=== PATIENT | male | born 1995 | race Caucasian/White ===

== ENCOUNTER 2022-03-17 13:58 | Emergency (ER) | payer BC, SELFPAY ==
[2022-03-17 13:59] VITALS: BP 161/96; PULSE 125; RESP 14; TEMP 36.3; O2SAT 99; BMI 30.7
--- NOTE | 2022-03-17 14:19 | EKG12_ITS ---
Test Reason : HTN Blood Pressure : / mmHG Vent. Rate : 114 BPM Atrial Rate : 114 BPM P-R Int : 178 ms QRS Dur : 088 ms QT Int : 316 ms P-R-T Axes : 060 065 062 degrees QTc Int : 435 ms Sinus tachycardia Otherwise normal ECG Confirmed by EFREN WEATHERS, ROBERT ([id number]), acquisition editor KRUNAL VASQUEZ ([id number]) on 03/20/2022 9:54:42 A M Referred By: Confirmed By:LEANNE SCHWARTZ MD
--- NOTE | 2022-03-17 14:22 | EDS_ITS ---
HPI <VAL Seaman - Last Filed: 03/17/22 16:01> History of Present Illness Chief Complaint: Hypertension Narrative Narrative: 26-year-old male presents with multiple complaints. Over the last 2 weeks he has felt intermittent palpitations, shortness of breath at rest, numbness and tingling all over, and difficulty concentrating like my brain is on a dimmer switch. Today while sitting he felt extreme fatigue and weakness which prompted him to come in. He was able to stand and walk to the car. He checked his blood sugar with his family's glucometer and it was 111. He had no associated chest pain or shortness of breath. In fact he states he is able to run and exercise with no symptoms. He reports having similar intermittent symptoms for over a year. He had a full cardiology work-up at [place] with EKG and echo which was normal. He trialed metoprolol for tachycardia for a week but states he did not like taking medication. He also had treated anxiety but the medications made it worse. He is also had neurological work-up with an MRI of the brain and EEG he reports were normal. He denies taking any medications for 6+ months now. He does not smoke or drink alcohol or use drugs. PFSH <VAL Seaman - Last Filed: 03/17/22 16:01> [facility] Medical History no medical history Allergy/AdvReac Type Severity Reaction Status Date / Time No Known Allergies Allergy Verified 03/17/22 13:59 Surgical History no surgical history Social History Smoking Status: Never smoker ROS <VAL Seaman - Last Filed: 03/17/22 16:01> ROS ED ROS Narrative Constitutional: Negative for fever, chills, malaise. Eyes: Negative for visual change. ENT: Negative for sore throat, ear pain, rhinorrhea. CVS: Positive for palpitations. Negative for chest pain, syncope. Respiratory: Positive for shortness of breath. Negative for cough, orthopnea. GI: Negative for abdominal pain, nausea, vomiting, diarrhea, constipation, melena, hematochezia. : Negative for dysuria, hematuria or frequency. Neuro: Negative for headache, motor/sensory dysfunction. Skin: Negative for rash, abscess, or wound. Musc: Negative for joint pain, swelling, trauma. Heme: Negative for easy bruising, bleeding, lymphadenopathy. EXAM <VAL Seaman - Last Filed: 03/17/22 16:01> Physical Exam Narrative Exam Narrative: CONST: Patient standing, mildly anxious appearing. EYES: Normal inspection. ENT: Normal inspection, moist mucous membranes. NECK: Normal inspection. RESP: No respiratory distress, CTAB. CVS: Tachycardic with regular rhythm, no murmur, no gallop. SKIN: Color normal, no rash, warm, dry, intact. EXTREMITIES: Normal appearance, no pedal edema. NEURO: Oriented x4. PSYCH: Normal affect. Const Vital Signs: 03/17/22 13:59 03/17/22 14:15 03/17/22 16:11 Temperature 97.4 F L Temperature Source Temporal Pulse Rate 125 H 61 Respiratory Rate 14 15 Respiratory Effort Normal Respiratory Pattern Normal Blood Pressure 161/96 H 134/78 H Blood Pressure Mean 117 Pulse Ox 99 98 Oxygen Delivery Method Room Air <Dr. Kenneth Olsen DO - Last Filed: 03/17/22 22:37> Physical Exam Const Vital Signs: 03/17/22 13:59 03/17/22 14:15 03/17/22 16:11 Temperature 97.4 F L Temperature Source Temporal Pulse Rate 125 H 61 Respiratory Rate 14 15 Respiratory Effort Normal Respiratory Pattern Normal Blood Pressure 161/96 H 134/78 H Blood Pressure Mean 117 Pulse Ox 99 98 Oxygen Delivery Method Room Air [facility] <VAL Seaman - Last Filed: 03/17/22 16:01> [facility] Narrative Medical decision making narrative: Patient presents with constellation of symptoms including generalized weakness, palpitations, intermittent shortness of breath at rest, and tingling. He appears well and nontoxic. Vital signs show BP of 161/96 and heart rate of 125 otherwise normal. On examination he is anxious. His heart is rapid but regular. Lungs are clear. Overall exam benign. EKG is sinus rhythm with normal intervals and no ischemic changes. Basic labs and TSH only remarkable for mild hypokalemia of 3.3. Troponin and D-dimer negative and CXR shows no acute process. Patient reports having extensive work-up for these symptoms in the last year including cardiology work-up with EKG/echo and neurology work-up with MRI brain/EEG which were all unrevealing. Cardiology had prescribed metoprolol XR 25 mg once daily and patient only took this for a week. He has known intermittent tachycardia and is mildly tachycardic here. He was agreeable to restart this so I provided a prescription. 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 He was discharged in stable condition. Lab Data Attestation: I reviewed the patient's lab results. Labs: Laboratory Results - last 24 hr 03/17/22 03/17/22 03/17/22 14:30 14:30 14:30 WBC 5.2 RBC 4.95 Hgb 15.8 Hct 45.6 MCV 92.1 MCH 31.9 MCHC 34.6 RDW Std Deviation 43.2 RDW Coeff of Ean 12.7 Plt Count 208 MPV 11.5 Immature Gran % (Auto) 0.400 Neut % (Auto) 56.1 Lymph % (Auto) 31.3 Archer % (Auto) 9.1 Eos % (Auto) 2.5 Baso % (Auto) 0.6 Absolute Neuts (auto) 2.9 Absolute Lymphs (auto) 1.62 Nucleated RBC % 0 D-Dimer Quant (PE/DVT) 0.29 Sodium 142 Potassium 3.3 L Chloride 109 H Carbon Dioxide 24.0 Anion Gap 9 BUN 12 Creatinine 1.22 Estim Creat Clear Calc 97.73 Est GFR (MDRD) Af Amer 92 Est GFR (MDRD) Non-Af 76 BUN/Creatinine Ratio 9.8 L Glucose 149 H Calcium 9.3 Troponin I High Sens 3 TSH 03/17/22 14:30 WBC RBC Hgb Hct MCV MCH MCHC RDW Std Deviation RDW Coeff of Ean Plt Count MPV Immature Gran % (Auto) Neut % (Auto) Lymph % (Auto) Archer % (Auto) Eos % (Auto) Baso % (Auto) Absolute Neuts (auto) Absolute Lymphs (auto) Nucleated RBC % D-Dimer Quant (PE/DVT) Sodium Potassium Chloride Carbon Dioxide Anion Gap BUN Creatinine Estim Creat Clear Calc Est GFR (MDRD) Af Amer Est GFR (MDRD) Non-Af BUN/Creatinine Ratio Glucose Calcium Troponin I High Sens TSH 1.75 Radiography Diagnostic Testing: Clinical Impression(s) from Imaging Studies Chest X-Ray 03/17/22 14:40 IMPRESSION: Scattered calcified granulomas. The lungs are clear. Electronically Signed: Gigi Toussaint MD at 14:49 EDT , ED attending interpretation shows normal heart size, no acute infiltrate, edema, or effusion. EKG Initial EKG: Attestation: I personally reviewed and interpreted this EKG as follows: Interpretation: Sinus Rhythm and No Acute Injury Pattern Comments: Sinus tachycardia at 114 bpm, normal intervals, no acute ischemia <Dr. Kenneth Olsen, DO - Last Filed: 03/17/22 22:37> [facility] MDM Narrative Medical decision making narrative: Patient presents with constellation of symptoms including generalized weakness, palpitations, intermittent shortness of breath at rest, and tingling. He appears well and nontoxic. Vital signs show BP of 161/96 and heart rate of 125 otherwise normal. On examination he is anxious. His heart is rapid but regular. Lungs are clear. Overall exam benign. EKG is sinus rhythm with normal intervals and no ischemic changes. Basic labs and TSH only remarkable for mild hypokalemia of 3.3. Troponin and D-dimer negative and CXR shows no acute process. Patient reports having extensive work-up for these symptoms in the last year including cardiology work-up with EKG/echo and neurology work-up with MRI brain/EEG which were all unrevealing. Cardiology had prescribed metoprolol XR 25 mg once daily and patient only took this for a week. He has known intermittent tachycardia and is mildly tachycardic here. He was agreeable to restart this so I provided a prescription. 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 He was discharged in stable condition. Attending note: Patient seen and evaluated with bridge instructor. I perform my own [id number] evaluation. I agree with the plan of work-up. Recurrent palpitations lightheadedness and tingling paresthesias hands and feet. Symptoms started 6 months ago he has follow-up with cardiology in [place] along with neurology. Reports echocardiogram 16-day event monitor only noting sinus tachycardia. He had MRI of the brain EEG with neurology that were negative he had recommended potential seizure medicines to try to help with symptoms however declined. He was put on metoprolol 25 mg daily however took it for 1 to 2 weeks however stopped. Denies alcohol caffeine substances or recreational drug use. He did have recent return to [place]. Exam patient walking around the room anx ious. Heart was tachycardic. No focal deficits. EKG sinus tachycardia. Chest x-ray 1 view reviewed by myself read by radiology shows no acute process. Labs stable with potassium 3.3 this was orally replaced. Low risk Wells criteria for PE with tachycardia D-dimer obtained negative. TSH added with normal. Offered 40-hour Holter monitor initially agreed however then declined stating he will follow-up with his glassine machine tender. Discussed with patient to rediscussed with his neurology team for potential treatment for his neurological symptoms. He did agree to go back to metoprolol 25 mg daily for which a prescription was written. All questions were answered. Lab Data Labs: Laboratory Results - last 24 hr 03/17/22 03/17/22 03/17/22 14:30 14:30 14:30 WBC 5.2 RBC 4.95 Hgb 15.8 Hct 45.6 MCV 92.1 MCH 31.9 MCHC 34.6 RDW Std Deviation 43.2 RDW Coeff of Ean 12.7 Plt Count 208 MPV 11.5 Immature Gran % (Auto) 0.400 Neut % (Auto) 56.1 Lymph % (Auto) 31.3 Archer % (Auto) 9.1 Eos % (Auto) 2.5 Baso % (Auto) 0.6 Absolute Neuts (auto) 2.9 Absolute Lymphs (auto) 1.62 Nucleated RBC % 0 D-Dimer Quant (PE/DVT) 0.29 Sodium 142 Potassium 3.3 L Chloride 109 H Carbon Dioxide 24.0 Anion Gap 9 BUN 12 Creatinine 1.22 Estim Creat Clear Calc 97.73 Est GFR (MDRD) Af Amer 92 Est GFR (MDRD) Non-Af 76 BUN/Creatinine Ratio 9.8 L Glucose 149 H Calcium 9.3 Troponin I High Sens 3 TSH 03/17/22 14:30 WBC RBC Hgb Hct MCV MCH MCHC RDW Std Deviation RDW Coeff of Ean Plt Count MPV Immature Gran % (Auto) Neut % (Auto) Lymph % (Auto) Archer % (Auto) Eos % (Auto) Baso % (Auto) Absolute Neuts (auto) Absolute Lymphs (auto) Nucleated RBC % D-Dimer Quant (PE/DVT) Sodium Potassium Chloride Carbon Dioxide Anion Gap BUN Creatinine Estim Creat Clear Calc Est GFR (MDRD) Af Amer Est GFR (MDRD) Non-Af BUN/Creatinine Ratio Glucose Calcium Troponin I High Sens TSH 1.75 Radiography Diagnostic Testing: Clinical Impression(s) from Imaging Studies Chest X-Ray 03/17/22 14:40 IMPRESSION: Scattered calcified granulomas. The lungs are clear. Electronically Signed: Gigi Toussaint MD at 14:49 EDT , Discharge Plan Triage Chief Complaint: Hypertension ED Midlevel Provider: Trudy Duval ED Provider: Kenneth Olsen Dx/Rx/DC Orders Clinical Impression: Heart palpitations, Mild shortness of breath, Acute hypokalemia Instructions: ED Dyspnea, ED Palpitations Primary Care Provider: DARIO HURST Referrals: Care Physician,No Primary [Non-Staff] - Activity Restrictions/Additional Instructions: Today all of your testing looked good. You had very mildly low potassium and were given a one-time dose for replacement. Continue to drink plenty of fluids and eat a balanced diet. Today all the testing regarding her heart looked normal. No signs of heart attack or blood clots. We will restart you on metoprolol as your heart rate is elevated in the streets tachycardia. Please follow-up with your doctors at [place]. Disposition Disposition: Home, Self Care Discharge Date/Time: 03/17/22 16:13
--- NOTE | 2022-03-17 14:24 | NURSING ---
NO OLD EKGS
[2022-03-17 14:34] LABS: Absolute Lymphocyte Count 1.62 X10^3/uL (0.83-4.51); Absolute Neutrophil Count 2.9 X10^3/uL (2.0-7.7); Basophil# 0.03 X10^3/uL; Basophil% 0.6 % (0-1); Eosinophil# 0.13 X10^3/uL; Eosinophils% 2.5 % (0-5); Hematocrit 45.6 % (40-54); Hemoglobin 15.8 g/dL (13.0-16.5); Lymphocyte # 1.62 X10^3/ul (0.83-4.51); Lymphocyte % 31.3 % (19-41); Mean Corp Hgb Conc 34.6 g/dL (32-36); Mean Corpuscular Hgb 31.9 pg (27.0-32.0); Mean Corpuscular Volume 92.1 fL (80-94); Mean Platelet Vol. 11.5 fl (6.2-12.0); Monocyte# 0.47 X10^3/uL; Monocyte% 9.1 % (0-10); NRBC Flagged by Analyzer 0 % (0-5); Neutrophil # 2.91 X10^3/uL (2.7-7.7); Neutrophil % 56.1 % (47-70); Platelet Count 208 K/mm3 (150-450); RBC Distribution Width CV 12.7 % (11.6-14.6); RBC Distribution Width SD 43.2 fl (35.1-43.9); Red Blood Count 4.95 M/mm3 (4.6-6.2); White Blood Count 5.2 K/mm3 (4.4-11.0)
--- NOTE | 2022-03-17 14:40 | RAD_ITS ---
STUDY: X-RAY CHEST REASON FOR EXAM: Male, 26 years old. Dyspnea TECHNIQUE: Single AP portable view of the chest. COMPARISON: None. FINDINGS: The lungs are clear and expanded. Scattered calcified granulomas. There is no demonstrated pleural abnormality. Normal size heart. Normal mediastinum and kristel. Normal visualized pulmonary arteries. Normal visualized aortic arch and descending thoracic aorta. Normal visualized thoracic spine. Normal visualized ribs, clavicles, and shoulders. There is no demonstrated abnormality of the visualized soft tissue structures of the upper abdomen. RAD/Chest 1 View (Portable) IMPRESSION: Scattered calcified granulomas. The lungs are clear. Electronically Signed: Gigi Toussaint MD at 14:49 EDT ,
[2022-03-17 14:47] LABS: D-Dimer Quantitative (DVT/PE) 0.29 FEU/ug/m (0.27-0.49)
[2022-03-17 14:54] LABS: Anion Gap 9 (5-15); BUN 12 mg/dL (7-18); BUN/Creat Ratio 9.8 RATIO (10-20); Calcium,Total 9.3 mg/dL (8.5-10.1); Chloride 109 mmol/L (98-107); Creatinine, Serum 1.22 mg/dL (0.70-1.30); EST Glomerular Filtration Rate 76 mL/min (>60); Est Glom Filt Rate - Afr Amer 92 mL/min (>60); Estimated Creatinine Clearance 97.73 ml/min; Glucose 149 mg/dL (74-106); Potassium 3.3 mmol/L (3.5-5.1); Sodium Level 142 mmol/L (136-145); Troponin-I HS 3 pg/mL (3.0-78.0)
[2022-03-17] MEDS: Potassium Chloride Oral Tablet 20 MEQ PO (15:37)
[2022-03-17] MEDS: Metoprolol(XL)Succ 25 MG Tablet PO (15:38)
[2022-03-17 15:45] LABS: Thyroid Stim Hormone (TSH) 1.75 uIU/mL (0.358-3.74)
[2022-03-17 16:11] VITALS: BP 134/78; PULSE 61; RESP 15; O2SAT 98
== END 2022-03-17 16:13 | disposition home or self-care (01) ==
PROVIDERS: Physician Assistant; Emergency Provider Emergency Medicine; Visit Provider Emergency Medicine
DX: R00.2 Palpitations (principal); E87.6 Hypokalemia; I10 Essential (primary) hypertension; F41.9 Anxiety disorder, unspecified; R06.02 Shortness of breath
CPT/HCPCS: 71045; 80048; 84443; 84484; 85025; 85379; 93005; 96360; 99285; A4216

== ENCOUNTER 2023-04-20 11:12 | Emergency (ER) | payer OTHER, SELFPAY ==
[2023-04-20 11:12] VITALS: BP 149/99; PULSE 106; RESP 16; TEMP 36.3; O2SAT 98; BMI 32.1
--- NOTE | 2023-04-20 11:57 | EDS_ITS ---
HPI History of Present Illness Chief Complaint: Hypertension Informant: patient Narrative Narrative: Patient is a 27-year-old male with history of hypertension presenting for concern of episodes of elevated blood pressure as well as odd sensation in his chest. He states that typically his blood pressure is 140-150/90-100. He notes over the past few days he has had increased episodes where he will start to feel funny and his blood pressure will shoot up to around 175 systolic. He states he feels like there is pressure on his eyes, have a headache, be dizzy/lightheaded and his chest feels like sludge. He notes he spoke to a family friend today who recommend he come to the ER but also gave him 1 mg of Ativan which did seem to help his symptoms. Patient notes that he has cut back on his alcohol and is now only drinking 1-2 times a week has not had any binge drinking for weeks. Does not think his alcohol withdrawal but notes his blood pressure seems to be worse when he goes extended amounts of time without drinking alcohol. He is not sure if this is related or some type of alcohol withdraw. He has been prescribed BuSpar as well as metoprolol in the past but does not take it because he does not really like to take medicines. His PCP is Dr. Dario Hurst. Has not had blood work for over a year. States he does have a history of anxiety and panic attacks but has not had a lot of stress lately with the change in jobs. He then goes on to tell me that his is due with their first child and getting induced this coming Sunday. Patient notes he is feeling better than where he was earlier today was quite concerned about what ever could be causing on his elevated blood pressures. PFSH PFSH Medical History no medical history Home Medications hydroxyzine HCl 25 mg tablet 25 mg PO TID PRN anxiety #20 tabs 04/20/23 [Rx Last Taken Unknown] Allergy/AdvReac Type Severity Reaction Status Date / Time No Known Allergies Allergy Verified 04/20/23 11:12 Social History Smoking Status: Never smoker ROS ROS ED Constitutional Constitutional ED: Reports other Details: lightheaded/dizzy ; Denies chills or fever(s) Eyes Eyes: Denies blurry vision or change in vision ENT ENT ED: Denies sore throat Cardiovascular Cardiovascular: Reports chest pain; Denies palpitations or racing heartbeat Respiratory/Chest Respiratory/Chest: Denies cough or dyspnea Gastrointestinal Gastrointestinal: Denies abdominal pain, nausea or vomiting Musculoskeletal Musculoskeletal: Denies arthralgias or myalgias Integumentary Denies rash Neurologic Neurologic: Reports headache(s); Denies paresthesias or weakness Psychiatric Psychiatric: Reports anxiety; Denies depression, suicidal ideation or suicidal thoughts EXAM Physical Exam Const Vital Signs: 04/20/23 11:12 04/20/23 12:35 04/20/23 15:12 Temperature 97.4 F L Temperature Source Temporal Pulse Rate 106 H 79 Respiratory Rate 16 16 Respiratory Pattern Normal Blood Pressure 149/99 H 127/78 H Blood Pressure Mean 115 94 Pulse Ox 98 96 Oxygen Delivery Method Room Air Room Air 04/20/23 15:12 Temperature Temperature Source Pulse Rate 79 Respiratory Rate 16 Respiratory Pattern Blood Pressure 127/78 H Blood Pressure Mean 94 Pulse Ox 96 Oxygen Delivery Method Positive well nourished and well developed General Appearance ED: well developed and NAD HEENT Reports moist mucous membranes Eyes PERRL and EOMs intact bilaterally Neck supple and no JVD Chest Wall inspection of chest normal and palpation of chest normal Resp normal respiratory effort and clear to auscultation bilaterally Cardio regular rate, regular rhythm and no murmurs Cardio Narrative: 2+ radial and PT pulses GI normal to inspection, nondistended, normoactive bowel sounds and non-tender Extremity normal to inspection General Extremety ED: Negative for edema or tenderness General Extremity: Negative for edema Neuro oriented x3 Sensorium / Orientation: alert Motor Exam: Negative for general weakness Psych mental status grossly normal Mood & Affect: Negative for depressed or anxious Skin no rashes or lesions noted and no wounds MDM MDM MDM Narrative Medical decision making narrative: Patient evaluated for concern of elevated blood pressure. Patient had elevated blood pressures as high as 170 at home. He states normally he is between 1 4150. He has episodes of chest discomfort which she describes as feeling like there is sludge in his chest and feel like he might pass out. It does seem improved with Ativan which he took today. He does have a history of anxiety has previously been on BuSpar and has metoprolol but not been taking it. He appears nontoxic in the ER. EKG is nonischemic with no LVH or other acute abnormalities. CBC and BMP normal with no signs of endorgan damage associated with hypertension. Troponin is normal at 6 and his TSH is normal at 1.88. Differential includes anxiety reaction, uncontrolled/undiagnosed hypertension, hypertensive emergency and thyroid storm however given his work-up in the ER have a low suspicion for any of the severe diagnosis. On repeat his blood pressure is now 127/78 with no intervention. Given that he normalized and the only thing he took was Ativan prior to arrival I suspect this is more of an anxiety reaction. I did discuss the case with his PCP, Dr. Noble, he will instruct the patient to resume taking daily 25 metoprolol succinate daily and will prescribe hydroxyzine as needed. Patient agreeable with plan of care. Is given return precautions. Discharged home in stable condition. Lab Data Labs: Laboratory Results - last 24 hr 04/20/23 12:30 WBC 5.3 RBC 5.06 Hgb 15.9 Hct 46.9 MCV 92.7 MCH 31.4 MCHC 33.9 RDW Std Deviation 42.0 RDW Coeff of Ean 12.2 Plt Count 223 MPV 11.1 Immature Gran % (Auto) 0.600 Neut % (Auto) 64.9 Lymph % (Auto) 21.7 [place] % (Auto) 9.8 Eos % (Auto) 2.1 Baso % (Auto) 0.9 Absolute Neuts (auto) 3.4 Absolute Lymphs (auto) 1.15 Nucleated RBC % 0 Sodium 139 Potassium 4.0 Chloride 106 Carbon Dioxide 28.0 Anion Gap 5 BUN 13 Creatinine 1.02 Estim Creat Clear Calc 115.86 Est GFR (MDRD) Af Amer 112 Est GFR (MDRD) Non-Af 93 BUN/Creatinine Ratio 12.7 Glucose 100 Calcium 9.3 Troponin I High Sens 6 TSH 1.88 Radiography Diagnostic Testing: Clinical Impression(s) from Imaging Studies Chest X-Ray 04/20/23 12:20 IMPRESSION: Normal x-ray examination of the chest. Electronically Signed: Gigi Toussaint MD at 12:33 EST , Rhythm Strip Rhythm Strip: Sinus Rhythm Rate: 70 Ectopy: None EKG Initial EKG: Attestation: I personally reviewed and interpreted this EKG as follows: Interpretation: Sinus Rhythm Comments: Normal sinus rhythm rate of 77 bpm Normal axis Normal intervals Normal ST segments Prior EKG tracings: available for review Prior: Changed (No longer tachycardic) Management Discussion w/another healthcare provider: PCP Discharge Plan Triage Chief Complaint: Hypertension ED Provider: Olga Johnson Dx/Rx/DC Orders Clinical Impression: Temporary high blood pressure, Chest discomfort Instructions: ED Chest Pain, Noncardiac, ED Hypertension, To Be Confirmed Prescriptions: New hydroxyzine HCl 25 mg tablet 25 mg PO TID PRN (Reason: anxiety ) Qty: 20 0RF Primary Care Provider: DARIO HURST MD Referrals: NOT,DEFINED [Non-Staff] - Activity Restrictions/Additional Instructions: Please start taking the daily 25 mg of metoprolol succinate as we discussed with Dr. Hurst. If you have worsening symptoms which you have been experiencing please take the hydroxyzine prescribed as needed. Take your blood pressure once a day as we discussed. Make sure you are sitting for 10 to 15 minutes before taking it and avoid caffeine. Your work-up today for signs of endorgan damage or abnormalities associate with high blood pressure was normal and on repeat evaluation your blood pressure had normalized. Disposition Disposition: Home, Self Care Discharge Date/Time: 04/20/23 15:31
--- NOTE | 2023-04-20 12:20 | RAD_ITS ---
STUDY: X-RAY CHEST REASON FOR EXAM: Male, 27 years old. Chest pain and hypertension. TECHNIQUE: PA and lateral views of the chest. COMPARISON: Comparison is made with prior study March 17, 2002. FINDINGS: The lungs are clear and expanded. Scattered calcified granulomata. There is no demonstrated pleural abnormality. Normal size heart. Normal mediastinum and kristel. Normal visualized pulmonary arteries. Normal visualized aortic arch and descending thoracic aorta. Normal visualized thoracic spine. Normal visualized ribs, clavicles, and shoulders. There is no demonstrated abnormality of the visualized soft tissue structures of the upper abdomen. RAD/Chest PA and Lateral IMPRESSION: Normal x-ray examination of the chest. Electronically Signed: Gigi Toussaint MD at 12:33 EST ,
--- NOTE | 2023-04-20 12:33 | EKG12_ITS ---
Test Reason : HYPERTENSON Blood Pressure : / mmHG Vent. Rate : 077 BPM Atrial Rate : 077 BPM P-R Int : 168 ms QRS Dur : 088 ms QT Int : 352 ms P-R-T Axes : 042 051 020 degrees QTc Int : 398 ms Normal sinus rhythm Normal ECG Confirmed by MATI WEATHERS, NEHEMIAH ([id number]), map editor KRUNAL VASQUEZ ([id number]) on 04/25/2023 12:23:20 PM Referred By: ANEL Confirmed By:NEHEMIAH THORNE MD
[2023-04-20 12:43] LABS: Absolute Lymphocyte Count 1.15 X10^3/uL (0.83-4.51); Absolute Neutrophil Count 3.4 X10^3/uL (2.0-7.7); Basophil# 0.05 X10^3/uL; Basophil% 0.9 % (0-1); Eosinophil# 0.11 X10^3/uL; Eosinophils% 2.1 % (0-5); Hematocrit 46.9 % (40-54); Hemoglobin 15.9 g/dL (13.0-16.5); Lymphocyte # 1.15 X10^3/ul (0.83-4.51); Lymphocyte % 21.7 % (19-41); Mean Corp Hgb Conc 33.9 g/dL (32-36); Mean Corpuscular Hgb 31.4 pg (27.0-32.0); Mean Corpuscular Volume 92.7 fL (80-94); Mean Platelet Vol. 11.1 fl (6.2-12.0); Monocyte# 0.52 X10^3/uL; Monocyte% 9.8 % (0-10); NRBC Flagged by Analyzer 0 % (0-5); Neutrophil # 3.44 X10^3/uL (2.7-7.7); Neutrophil % 64.9 % (47-70); Platelet Count 223 K/mm3 (150-450); RBC Distribution Width CV 12.2 % (11.6-14.6); Red Blood Count 5.06 M/mm3 (4.6-6.2); White Blood Count 5.3 K/mm3 (4.4-11.0)
[2023-04-20 13:10] LABS: Anion Gap 5 (5-15); BUN 13 mg/dL (7-18); BUN/Creat Ratio 12.7 RATIO (10-20); Calcium,Total 9.3 mg/dL (8.5-10.1); Chloride 106 mmol/L (98-107); Creatinine, Serum 1.02 mg/dL (0.70-1.30); EST Glomerular Filtration Rate 93 mL/min (>60); Est Glom Filt Rate - Afr Amer 112 mL/min (>60); Estimated Creatinine Clearance 115.86 ml/min; Glucose 100 mg/dL (74-106); Sodium Level 139 mmol/L (136-145); Thyroid Stim Hormone (TSH) 1.88 uIU/mL (0.358-3.74); Troponin-I HS 6 pg/mL (3.0-78.0)
--- NOTE | 2023-04-20 14:37 | NURSING ---
CALLED DR DARIO HUSRT [phone]. LEFT MESSAGE
[2023-04-20 15:12] VITALS: BP 127/78; PULSE 79; RESP 16; O2SAT 96
== END 2023-04-20 15:31 | disposition home or self-care (01) ==
PROVIDERS: Emergency Provider Emergency Medicine; Visit Provider Emergency Medicine
DX: R07.89 Other chest pain (principal); I10 Essential (primary) hypertension
CPT/HCPCS: 71046; 80048; 84443; 84484; 85025; 93005; 99285; A4216